=== PATIENT | female | born 1975 | race Two or more races ===

== ENCOUNTER 2017-05-07 11:57 | Emergency (ER) | payer MEDICAID ==
[~2017-05-07] VITALS: Ht 154.9 cm; Wt 77.1 kg
[2017-05-07 12:15] VITALS: Ht 154.9 cm; Wt 77.1 kg
[2017-05-07 13:08] VITALS: BP 145/88
== END 2017-05-07 13:08 | disposition home or self-care (01) ==
LOC: ED 11:57
DX: J06.9 Acute upper respiratory infection, unspecified (principal); R59.1 Generalized enlarged lymph nodes

== ENCOUNTER 2017-10-23 11:14 | Emergency (ER) | payer SELFPAY ==
[~2017-10-23] VITALS: Ht 162.6 cm; Wt 83.5 kg
[2017-10-23 11:24] VITALS: Ht 162.6 cm; Wt 83.5 kg
[2017-10-23 13:53] VITALS: BP 154/105
== END 2017-10-23 14:09 | disposition home or self-care (01) ==
LOC: ED 11:14
DX: G44.209 Tension-type headache, unspecified, not intractable (principal)

== ENCOUNTER 2017-12-02 17:46 | Emergency (ER) | payer SELFPAY ==
[~2017-12-02] VITALS: Ht 154.9 cm; Wt 83.0 kg
[2017-12-02 18:10] VITALS: BP 156/95; Ht 154.9 cm; Wt 83.0 kg
== END 2017-12-02 19:04 | disposition left against medical advice (07) ==
LOC: ED 17:46
DX: Z53.21 Procedure and treatment not carried out due to patient leaving prior to being seen by health care provider (principal)

== ENCOUNTER 2017-12-10 09:18 | Emergency (ER) | payer MEDICAID ==
[2017-12-10 09:33] VITALS: Ht 154.9 cm
[2017-12-10 10:13] LABS: microscopic required? NO
[2017-12-10 10:20] LABS: UA SPECIFIC GRAVITY 1.025 (1.005-1.035); urine erythrocyte NEGATIVE (NEGATIVE)
[2017-12-10 10:24] LABS: BASOPHIL % 0.6 % (0-2); PLATELET COUNT 298 x10^3mcL (130-400); RED CELL DISTRIBUTION WIDTH 16.4 % (11.5-14.5)
[2017-12-10 12:18] VITALS: BP 118/72
== END 2017-12-10 12:18 | disposition home or self-care (01) ==
LOC: ED 09:18
PROVIDERS: Emergency Medicine
DX: O26.891 Other specified pregnancy related conditions, first trimester (principal); R10.30 Lower abdominal pain, unspecified; Z3A.01 Less than 8 weeks gestation of pregnancy; I10 Essential (primary) hypertension
CPT/HCPCS: 36415